=== PATIENT | female | born 1990 | race Caucasian/White ===

== ENCOUNTER 2020-06-09 06:52 | Observation (INO) | payer OTHER, SELFPAY ==
--- NOTE | 2020-06-09 09:25 | OBADM ---
This patient, Rhonda Alaom, admitted to the OB room Labor/Delivery/Recovery 120 for observation. Patient/family oriented to hospital policies and general routines including ID bracelet, bed and alarms, visiting hours, pain management, procedures, bathroom and other care routines, personal items, smoking policy, room service/diet, and visiting hours. Patient/Family are encouraged to report perceived risks to care and to ask questions if they do not understand what they are told or what they should do.
--- NOTE | 2020-06-12 08:50 | PM.OBTRLD ---
OB - Triage/Final Diagnosis Visit Information Reason for evaluation: other (gest htn) Comments/Additional reasons for admission: I have assessed the risk for this patient, Rhonda Alamo, and determined that she would benefit from observation care.
== END 2020-06-09 09:30 | disposition home or self-care (01) ==
PROVIDERS: Admitting Provider Obstetrics & Gynecology; PCP Family Medicine; Visit Provider Obstetrics & Gynecology
DX: O13.3 Gestational [pregnancy-induced] hypertension without significant proteinuria, third trimester (principal); Z3A.37 37 weeks gestation of pregnancy
CPT/HCPCS: G0378; G0379

== ENCOUNTER 2020-06-11 14:56 | Outpatient (CLI) | payer OTHER, SELFPAY ==
[2020-06-11 15:15] LABS: Hemoglobin 10.1 g/dL (12.0-15.0); Mean Corpuscular HGB Conc 32.6 g/dl (32-36); Mean Corpuscular Hemoglobin 24.8 pg (26-34); Mean Platelet Volume 10.6 fl (7.4-10.4); Platelet Count Result 205 k/mm3 (150-375); Red Blood Count 4.08 M/mm3 (4.2-5.4); Red Cell Distribution Width 13.6 % (11.5-14.5); White Blood Count 8.8 K/mm3 (4.5-10.0)
[2020-06-12 06:46] LABS: Rapid Plasma Reagin Non-Reactive (NonReactive)
== END 2020-06-11 14:57 | disposition home or self-care (01) ==
LOC: ANHLAB 14:58
PROVIDERS: PCP Family Medicine; Visit Provider Obstetrics & Gynecology
DX: Z34.93 Encounter for supervision of normal pregnancy, unspecified, third trimester (principal); Z3A.00 Weeks of gestation of pregnancy not specified
CPT/HCPCS: 36415; 85027; 86592; 86850; 86900; 86901

== ENCOUNTER 2020-06-13 05:42 | Inpatient (IN) | payer OTHER, SELFPAY ==
--- NOTE | 2020-06-11 15:31 | PM.IMHP ---
H&P: HPI History of Present Illness Date/Time: 06/11/20 15:31 29-year-old 011 whose last menstrual period was 09/21/2019, EDC is 06/27/2020, confirmed by 9 week ultrasound presents at 38 weeks gestation for repeat section. She has elevated blood pressures. She also desires permanent sterilization. Alternatives reviewed and permanent. Chief Complaint: -induced hypertension and term With previous section desiring permanent sterilization Review of Systems Review of Systems: All systems reviewed & are unremarkable except as noted in HPI and below PMFSH Family History Family History Mother Diabetes mellitus Atrial fibrillation Social History Social History Substance use: never Gender identity (if verbalized by the patient): Female Spiritual care concerns: No Meds Home Medications and Allergies Home Medications Medication Instructions Recorded Confirmed Type PNV cmb#95-ferrous fumarate-FA 1 tablet PO DAILY 06/02/20 06/02/20 History [] Allergies Allergy/AdvReac Type Severity Reaction Status Date / Time Sulfa (Sulfonamide Allergy Intermediate rash Verified 09/20/15 10:32 Antibiotics) Penicillins Allergy Mild Verified 07/04/11 21:00 sulfamethoxazole Allergy Unknown Verified 09/20/15 10:32 trimethoprim Allergy Unknown Verified 09/20/15 10:32 Exam Const: General: no acute distress Eyes: General: appearance normal, both eyes and all related structures Neck: Neck: supple and no JVD Thyroid: thyroid normal Resp: Effort & Inspection: normal respiratory effort Auscultation: clear to auscultation bilaterally Cardio: Rate: regular rate Rhythm: regular rhythm GI: Inspection: non-distended GI Palp: Yes Soft to palpation, No Tenderness to palpation present (GI) and No Guarding due to palpation present (GI) Auscultation: normal bowel sounds : External Female Exam: normal external appearance Speculum Exam - Vagina: normal vaginal discharge Bimanual exam- vagina & uterus: normal palpation and uterine size normal (gravid uterus) Skin: General skin exam: no rashes or lesions noted Extrem: General: normal to inspection and no edema Psych: Mental Status: mental status grossly normal Affect: normal affect Assessment and Plan Additional Plan Impression: 38 week with induced hypertension and desires permanent sterilization with previous section Plan: Repeat low-transverse section and bilateral tubal ligation
[2020-06-13] VITALS (32 sets, daily range): BP systolic 96–121; BP diastolic 64–86; PULSE 60–94; RESP 14–20; TEMP 36.2–36.8; O2SAT 98–100; BMI 44.3
[2020-06-13] MEDS: LACTATED RINGERS 1,000 ML 125 ML IV CONT (06:17)
--- NOTE | 2020-06-13 06:28 | LDADM ---
This patient, Rhonda Alamo, was admitted to Labor/Delivery/Recovery 120 on 06/13/20 at 05:42. Plans for labor, pain management and were discussed with patient. Patient/family oriented to hospital policies and general routines including ID bracelet, bed and alarms, visiting hours, pain management, procedures, bathroom and other care routines, personal items, smoking policy, room service/diet and guest tray routines, infant security routines, and visiting hours. Patient/Family are encouraged to report perceived risks to care and to ask questions if they do not understand what they are told or what they should do. See OBIX for further documentation.
--- NOTE | 2020-06-13 06:40 | WPDHPUPDATE1 ---
History and Physical Update Update Date/Time: 06/13/20 06:40 History and Physical has been reviewed, including an updated exam of the patient. There are NO changes in the patient's condition. Risks, benefits, and alternatives have been discussed and questions answered. Patient agrees to proceed with procedure.
--- NOTE | 2020-06-13 06:47 | WPDANESEPPF ---
Anes - Initial Pre Proc Eval Procedure: Operation Date: 06/13/20 07:30 Proposed Procedures p Repeat Section With Tubal - Julio Barrios MD Date/Time: 06/13/20 06:47 Surgeon: Julio Barrios MD Pre Op Diagnosis: Repeat Patient Data Age: 30 Gender: F Height: 1.64 m Weight: 119 kg Last Vital Signs Pulse 72 06/13/20 06:46 BP 119/86 06/13/20 06:46 Allergies Allergy/AdvReac Type Severity Reaction Status Date / Time Sulfa (Sulfonamide Allergy Intermediate rash Verified 09/20/15 10:32 Antibiotics) Penicillins Allergy Mild Verified 07/04/11 21:00 sulfamethoxazole Allergy Unknown Verified 09/20/15 10:32 trimethoprim Allergy Unknown Verified 09/20/15 10:32 Home Medications Medication Instructions Recorded Confirmed Type PNV cmb#95-ferrous fumarate-FA 1 tablet PO DAILY 06/02/20 06/13/20 History [] Laboratory Tests 06/13/20 06:24 HIV 1&2 Ab/P24 Ag 4thGn Pending Patient hx anesthesia problems: none Family hx anesthesia problems: none PMFSH Family History Family History Mother Diabetes mellitus Atrial fibrillation Social History Social History Smoking status: Never smoker Substance use: never Gender identity (if verbalized by the patient): Female Spiritual care concerns: No Anes - Eval Final PreProcedure Day of Procedure 06/13/20 06:47 Patient weight: obese Heart: regular rate and rhythm Lungs: clear to auscultation and normal air movement Airway: Mallampati scale Neurological: alert and oriented Last oral intake: >/= 8 hours ASA classification: II Emergent: no Anesthetic plan: proceed Anesthesia type and monitoring: regional spinal Informed Consent: The patient's anesthetic plan and its attendant risks and benefits were discussed with the patient/family/POA. Questions were solicited and answers provided to the satisfaction of the patient/family/POA.
[2020-06-13] MEDS: LACTATED RINGERS 1,000 ML 999 ML IV CONT (07:05)
--- NOTE | 2020-06-13 07:30 | PC.NURSE ---
PT introductions made and plan of care discussed per post op surgery, pain management, daily care activities and pending discharge to home. PT verbalized understanding of such care.
[2020-06-13 07:39] LABS: HIV 1/2 Ab P24 Ag Result Negative (Negative)
--- NOTE | 2020-06-13 08:01 | PM.PROC ---
Procedure Note - Detailed Date of procedure: 06/13/20 Pre-op diagnosis: Repeat Surgeon: Julio Barrios MD Postop diagnosis: Term /gestational hypertension/previous section/desires permanent sterilization Procedure: Repeat low-transverse section and bilateral tubal ligation via modified Allie method Q BL: 370cc Spinal anesthesia Complications: None Findings: Female 8 lb 10 oz with Apgars of 8 and 9 at 1 and 5 minutes respectively Description of procedure: The patient is prepped draped in normal sterile fashion placed in supine position. Under excellent spinal anesthetic the abdomen was entered through the previous Pfannenstiel incision progressive layers to fascia. Fascia was incised in upward fashion bilaterally. The underlying muscles sharply dissected the parietal peritoneum 0 by Luh clamp. This was carried superiorly inferiorly dome of bladder. Bladder blade was placed and a bladder flap formed. Laterally returned low-transverse incision made head delivered in the ISA position. Anterior posterior shoulder delivered spontaneously. Cord clamped and cut and passed off the table with excellent cry. Placenta delivered intact manually uterus delivered and wrapped in a moist towel. After assuring no membranes remained uterus the uterus was closed with continuous running 0 Vicryl from lateral edge to lateral edge followed by 2nd imbricating running locking 0 Vicryl from lateral edge to lateral edge. Hemostasis was assured ovaries and tubes appeared within normal limits right fallopian tube was grasped in a good knuckle of tube formed in the midportion. This was free tied with 0 chromic followed by piercing the peritoneum between. The distal and proximal end was free tied with 0 chromic in the portion between cut passed off the table and marked as portion of right fallopian tube. In like fashion left fallopian tube was grasped midportion. Good knuckle of tube formed and free tied with 0 chromic the peritoneum was pierced and the distal and proximal legs were free tied with Ellis chromic in portion between cut passed off the table and marked as portion of left fallopian tube. Hemostasis was assured on each fallopian tube incisions. The uterine incision inspected 1 last time noted be hemostatic. The uterus returned to the abdomen in the laps were accounted for. The fascia closed with continuous running 0 Vicryl from lateral edge to midline bilaterally. Irrigation subcutaneous layer the skin closed with 4 Monocryl glue. Q BL was 3 there were no immediate complications 360cc all sponge, needle, instrument counts was were correct. The patient went to recovery in satisfactory condition
[2020-06-13] MEDS: OXYTOCIN 30 UNITS/NS 500 ML 30 UNITS/500 ML BAG 125 UNITS IV CONT (08:48)
[2020-06-13] MEDS: MORPHINE SULFATE (*CRX) 2 MG/ML INJ IV PUSH ×2 (08:55→09:48)
--- NOTE | 2020-06-13 10:20 | OBPPTRN ---
Patient transferred to post room # 287 via stretcher. Support person present. Oriented to unit, room, information board, rooming in, admission packet and security measures. Patient verbalizes understanding.
--- NOTE | 2020-06-13 10:45 | PC.NURSE ---
PT received education teaching on and on herself. no learning barriers observed. discussion one to one with opportunity for questions from pt and spouse. both verbalized understanding of such teaching.
[2020-06-13] MEDS: KETOROLAC 30 MG/ML VIAL (*BKC) IV PUSH ×2 (11:47→17:51)
[2020-06-13] MEDS: SIMETHICONE 80 MG TAB.CHEW PO ×2 (11:48→17:51)
[2020-06-13] MEDS: DEXTROSE 5%/0.45% SOD CHL 1,000 ML 125 ML IV CONT (13:00)
[2020-06-13] MEDS: DOCUSATE SODIUM 100 MG CAPSULE PO (17:51)
[2020-06-14 00:15] VITALS: BP 104/64; PULSE 74; RESP 16; TEMP 36.7; O2SAT 98
[2020-06-14] MEDS: KETOROLAC 30 MG/ML VIAL (*BKC) IV PUSH (00:21)
[2020-06-14 04:30] VITALS: BP 113/73; PULSE 72; RESP 16; TEMP 36.7; O2SAT 98
--- NOTE | 2020-06-14 05:52 | PM.OBPNVD ---
OB - PN: Subj Subjective Date/time seen: 06/14/20 05:52 Patient comments: no complaints and pain well controlled baby status: doing well and nursing well OB - PN: Obj Data Labs CBC & Chem 7: 06/14/20 04:41 Labs: Laboratory Results - last 24 hr 06/13/20 06:24 HIV 1&2 Ab/P24 Ag 4thGn Negative OB - PN A/P Plan day: 1 Plan: routine care Time Spent With Patient Time: Total time spent is greater than 50% in coordination of care (as documented) at patient's floor/unit and/or counseling patient: Time with patient: less than 15 minutes Review of Systems Review of Systems: All systems reviewed & are unremarkable except as noted in HPI and below Exam Const: General: no acute distress Eyes: General: appearance normal, both eyes and all related structures Neck: Neck: supple and no JVD Thyroid: thyroid normal Resp: Effort & Inspection: normal respiratory effort Auscultation: clear to auscultation bilaterally Cardio: Rate: regular rate Rhythm: regular rhythm GI: Inspection: normal to inspection Percussion: Yes normal to percussion : General: Yes bladder normal to palpation External Female Exam: normal external appearance Speculum Exam - Vagina: normal vaginal discharge and No vaginal bleeding Speculum Exam - Cervix: nontender Bimanual exam- vagina & uterus: bladder normal to palpation and No Cervical tenderness present OB/external & speculum: No vaginal bleeding Skin: General skin exam: no rashes or lesions noted Extrem: General: normal to inspection and no edema Psych: Mental Status: mental status grossly normal Affect: normal affect
[2020-06-14 05:53] LABS: Basophils Percent Auto 0.3 % (0.2-1.2); Eosinophils Absolute Auto 0.1 K/mm3 (0-0.3); Eosinophils Percent Auto 1.3 % (0-4.4); Hematocrit 28.2 % (37.0-47.0); Hemoglobin 8.8 g/dL (12.0-15.0); Immature Granulocyte Absolute 0.04 K/mm3 (0.00-0.031); Immature Granulocyte Percent A 0.4 % (0-0.5); Lymphocytes Absolute Auto 2.03 K/mm3 (0.9-3.2); Lymphocytes Percent Auto 19.2 % (18.3-44.2); Mean Corpuscular HGB Conc 31.2 g/dl (32-36); Mean Corpuscular Volume 76.8 fl (80-100); Mean Platelet Volume 11.2 fl (7.4-10.4); Monocytes Absolute Auto 0.6 K/mm3 (0.1-0.6); Monocytes Percent Auto 5.8 % (2.6-8.5); Neutrophils Absolute Auto 7.7 K/mm3 (1.3-6.7); Platelet Count Result 169 k/mm3 (150-375); Red Blood Count 3.67 M/mm3 (4.2-5.4); Red Cell Distribution Width 13.7 % (11.5-14.5); White Blood Count 10.6 K/mm3 (4.5-10.0)
[2020-06-14 07:40] VITALS: BP 112/75; PULSE 73; RESP 20; TEMP 36.9; O2SAT 99
[2020-06-14] MEDS: POLYSACCHARIDE IRON COMPLEX 150 MG CAPSULE PO ×2 (07:52→16:24)
[2020-06-14] MEDS: DOCUSATE SODIUM 100 MG CAPSULE PO ×2 (07:52→16:24)
[2020-06-14] MEDS: IBUPROFEN 600 MG TABLET PO ×3 (07:53→23:20)
[2020-06-14] MEDS: SIMETHICONE 80 MG TAB.CHEW PO ×5 (08:01→23:20)
--- NOTE | 2020-06-14 09:23 | WPDANLDPN2 ---
Anes-Prog Note L&D Date/Time: 06/14/20 09:23 Comfortable throughout: section Neuraxial method: spinal Epidural/Spinal procedure site: clean & non-tender Neuro status: Neuro function grossly intact. Cardiovascular status: normal Respiratory status: normal Airway patency: baseline Mental status: baseline Post-Op hydration status: normal Vital Signs: Last Vital Signs Temp 36.9 C 06/14/20 07:40 Pulse 73 06/14/20 07:40 Resp 20 06/14/20 07:40 BP 112/75 06/14/20 07:40 Pulse Ox 99 06/14/20 07:40 Pain score (VAS): 2 I/O: Intake & Output 06/13/20 06/14/20 06/14/20 23:59 07:59 15:59 Intake Total 500 500 Output Total 250 2000 Balance 250 -1500 Post-procedural complaints: none Patient feedback: Patient satisfied with anesthetic care.
--- NOTE | 2020-06-14 09:23 | WPDANLDNPN2 ---
Anes-Prog Note L&D-Neuraxial Date/Time: 06/14/20 09:23 Neuraxial medications: intrathecal PF morphine Opiod-related complaints: none Patient feedback: Patient satisfied with post-operative pain management.
[2020-06-14 12:00] VITALS: BP 93/65; O2SAT 97
[2020-06-14] MEDS: HYDROcodone/acetaminophen (*CRX) 5-325 MG TABLET 1 TAB PO ×3 (12:35→20:40)
[2020-06-14 16:15] VITALS: BP 112/85; PULSE 83; RESP 18; O2SAT 97
[2020-06-14 19:00] VITALS: BP 121/84; PULSE 71; RESP 16; TEMP 36.8
[2020-06-14] MEDS: HYDROcodone/acetaminophen (*CRX) 10-325 MG TABLET 1 TAB PO (23:42)
--- NOTE | 2020-06-15 06:06 | PM.OBPNVD ---
OB - PN: Subj Subjective Date/time seen: 06/15/20 06:06 Patient comments: no complaints and pain well controlled baby status: doing well OB - PN: Obj Data Labs CBC & Chem 7: 06/14/20 04:41 Labs: Laboratory Results - last 24 hr 06/14/20 04:41 WBC 10.6 H RBC 3.67 L Hgb 8.8 L Hct 28.2 L MCV 76.8 L MCH 24.0 L MCHC 31.2 L RDW 13.7 Plt Count 169 MPV 11.2 H Immature Gran % (Auto) 0.4 Neut % (Auto) 73.0 Lymph % (Auto) 19.2 [place] % (Auto) 5.8 Eos % (Auto) 1.3 Baso % (Auto) 0.3 Lymph # (Auto) 2.03 [place] # (Auto) 0.6 Eos # (Auto) 0.1 Baso # (Auto) 0.0 Abs Immat Gran (auto) 0.04 H Absolute Neuts (auto) 7.7 H Absolute Nucleated RBC 0.0 Nucleated RBC % 0.0 OB - PN A/P Plan day: 2 Plan: routine care, discharge home and follow up 6 weeks (4 weeks) Time Spent With Patient Time: Total time spent is greater than 50% in coordination of care (as documented) at patient's floor/unit and/or counseling patient: Time with patient: less than 15 minutes Review of Systems Review of Systems: All systems reviewed & are unremarkable except as noted in HPI and below Exam Const: General: no acute distress Eyes: General: appearance normal, both eyes and all related structures Neck: Neck: supple and no JVD Thyroid: thyroid normal Resp: Effort & Inspection: normal respiratory effort Auscultation: clear to auscultation bilaterally Cardio: Rate: regular rate Rhythm: regular rhythm GI: Inspection: non-distended GI Palp: Yes Soft to palpation, No Tenderness to palpation present (GI) and No Guarding due to palpation present (GI) Auscultation: normal bowel sounds : General: Yes bladder normal to palpation External Female Exam: normal external appearance Speculum Exam - Vagina: normal vaginal discharge and No vaginal bleeding Speculum Exam - Cervix: nontender Bimanual exam- vagina & uterus: bladder normal to palpation and No Cervical tenderness present OB/external & speculum: No vaginal bleeding Skin: General skin exam: no rashes or lesions noted Extrem: General: normal to inspection and no edema Psych: Mental Status: mental status grossly normal Affect: normal affect
--- NOTE | 2020-06-15 06:07 | PM.DS ---
DS: Admitting Diagnosis Admitting Diagnosis Admitting Diagnosis: gest htn/38 weeks DS: Summary Hospital Course Hospital Course: Patient was admitted for repeat section. This was done secondary to elevated blood pressures. The procedure itself was unremarkable. Her blood pressures remained good throughout her stay. She was up, voiding without difficulty, ambulating, eating a regular diet, passing gas, and generally without complaints Time Spent with Patient Time attestation: Total time spent providing and/or coordinating discharge services: Exam Const: General: no acute distress Eyes: General: appearance normal, both eyes and all related structures Neck: Neck: supple and no JVD Thyroid: thyroid normal Resp: Effort & Inspection: normal respiratory effort Auscultation: clear to auscultation bilaterally Cardio: Rate: regular rate Rhythm: regular rhythm GI: Inspection: non-distended GI Palp: Yes Soft to palpation, No Tenderness to palpation present (GI) and No Guarding due to palpation present (GI) Auscultation: normal bowel sounds : General: Yes bladder normal to palpation External Female Exam: normal external appearance Speculum Exam - Vagina: normal vaginal discharge and No vaginal bleeding Speculum Exam - Cervix: nontender Bimanual exam- vagina & uterus: bladder normal to palpation and No Cervical tenderness present OB/external & speculum: No vaginal bleeding Skin: General skin exam: no rashes or lesions noted Extrem: General: normal to inspection and no edema Psych: Mental Status: mental status grossly normal Affect: normal affect DS: Data Data Completed and Pending Completed studies during hospitalization: Pending at discharge 06/13/20 07:45 Surgical [PTH] Routine Surgical [PTH] Routine Labs on day of discharge: Labs from last 24 hours 06/14/20 04:41 WBC 10.6 H RBC 3.67 L Hgb 8.8 L Hct 28.2 L MCV 76.8 L MCH 24.0 L MCHC 31.2 L RDW 13.7 Plt Count 169 MPV 11.2 H Immature Gran % (Auto) 0.4 Neut % (Auto) 73.0 Lymph % (Auto) 19.2 [place] % (Auto) 5.8 Eos % (Auto) 1.3 Baso % (Auto) 0.3 Lymph # (Auto) 2.03 [place] # (Auto) 0.6 Eos # (Auto) 0.1 Baso # (Auto) 0.0 Abs Immat Gran (auto) 0.04 H Absolute Neuts (auto) 7.7 H Absolute Nucleated RBC 0.0 Nucleated RBC % 0.0 Discharge Plan Discharge Attending physician on discharge: Julio Barrios Discharging Clinician: Julio Barrios Patient Disposition: Home, Self-Care Activity: may shower, no straining, may drive after 2 weeks and pelvic rest Diet: heart healthy Wound Care Instructions: follow printed instructions Patient Instructions: Antibiotic Form Stand Alone Forms: General Discharge Information Follow-up/Referrals: Julio Barrios MD [Physician] - Discharge Medications: New hydrocodone-acetaminophen 5-300 mg tablet 1 tablet PO Q6H PRN (Reason: pain) Qty: 30 RF: 0 Continued PNV cmb#95-ferrous fumarate-FA [] 28 mg iron- 800 mcg Tablet 1 tablet PO DAILY RF: 0 Date of admission: 06/13/20 05:42 Primary Care Provider: DayanSarah Admitting Provider: Julio Barrios Attending physician on admission: Julio Barrios Condition: Stable
[2020-06-15] MEDS: HYDROcodone/acetaminophen (*CRX) 5-325 MG TABLET 1 TAB PO ×4 (06:57→19:50)
[2020-06-15] MEDS: SIMETHICONE 80 MG TAB.CHEW PO ×4 (06:57→21:00)
[2020-06-15] MEDS: DOCUSATE SODIUM 100 MG CAPSULE PO ×2 (06:58→16:12)
[2020-06-15] MEDS: POLYSACCHARIDE IRON COMPLEX 150 MG CAPSULE PO ×2 (06:58→16:12)
[2020-06-15] MEDS: IBUPROFEN 600 MG TABLET PO ×3 (06:58→19:50)
--- NOTE | 2020-06-15 07:00 | PC.NURSE ---
PT introductions made and plan of care discussed per post op c section, pain management, daily care activities and bottle feeding. PT verbalized understanding of such care.
[2020-06-15 07:55] VITALS: BP 117/70; PULSE 82; RESP 18; TEMP 36.9; O2SAT 99
[2020-06-15 20:10] VITALS: BP 125/76; PULSE 72; RESP 16; TEMP 36.1; O2SAT 100
[2020-06-16] MEDS: IBUPROFEN 600 MG TABLET PO ×2 (01:57→07:47)
[2020-06-16] MEDS: SIMETHICONE 80 MG TAB.CHEW PO ×2 (04:54→07:05)
[2020-06-16] MEDS: DOCUSATE SODIUM 100 MG CAPSULE PO (07:05)
[2020-06-16] MEDS: POLYSACCHARIDE IRON COMPLEX 150 MG CAPSULE PO (07:05)
[2020-06-16] MEDS: HYDROcodone/acetaminophen (*CRX) 5-325 MG TABLET 1 TAB PO (07:09)
[2020-06-16 07:10] VITALS: BP 121/88; PULSE 68; RESP 16; TEMP 36.1
--- NOTE | 2020-06-16 07:20 | PM.OBDSVD ---
DS: Admitting Diagnosis Admitting Diagnosis Admitting Diagnosis: repeat section OB - DS: Summary OB Procedures : None OB Procedures Intrapartum: OB Procedures: : None Peripartum Data Delivery Method: Section Procedures: Procedures Operation Date: 06/13/20 07:30 Actual Procedures Side Surgeon p Repeat Section With Tubal Not Applicable Julio Barrios MD complications: none Status at Discharge Functional status at discharge: independent ambulation Overall status at discharge: patient is progressing back to baseline Time Spent with Patient Time attestation: Total time spent providing and/or coordinating discharge services: Time spent: Less than 30 minutes Exam Const: General: comfortable and no acute distress Resp: Effort & Inspection: normal respiratory effort Auscultation: clear to auscultation bilaterally Cardio: Rate: regular rate GI: Inspection: non-distended GI Palp: Yes Soft to palpation, No Firmness to palpation present (GI), Yes Tenderness to palpation present (GI) (mild tenderness over incision ) and No Guarding due to palpation present (GI) Auscultation: normal bowel sounds Psych: Appearance: grossly normal Mental Status: mental status grossly normal DS: Data Data Completed and Pending Completed studies during hospitalization: Pending at discharge 06/13/20 07:45 Surgical [PTH] Routine Surgical [PTH] Routine Discharge Plan Discharge Attending physician on discharge: Julio Barrios Discharging Clinician: Julio Barrios Patient Disposition: Home, Self-Care Activity: may shower, no straining, may drive after 2 weeks and pelvic rest Diet: heart healthy Wound Care Instructions: follow printed instructions Patient Instructions: Antibiotic Form Stand Alone Forms: General Discharge Information Follow-up/Referrals: Julio Barrios MD [Physician] - Discharge Medications: New hydrocodone-acetaminophen 5-300 mg tablet 1 tablet PO Q6H PRN (Reason: pain) Qty: 30 RF: 0 Continued PNV cmb#95-ferrous fumarate-FA [] 28 mg iron- 800 mcg Tablet 1 tablet PO DAILY RF: 0 Date of admission: 06/13/20 05:42 Primary Care Provider: Dayan,Sarah Admitting Provider: Julio Barrios Attending physician on admission: Julio Barrios Condition: Stable
[2020-06-18 11:01] VITALS: BP 120/88; PULSE 76; RESP 20; TEMP 36.6; O2SAT 99
== END 2020-06-16 12:40 | disposition home or self-care (01) | DRG 785 ==
LOC: ANHLDR 05:46 → ANHOB2 10:48
PROVIDERS: Admitting Provider Obstetrics & Gynecology; PCP Family Medicine; Visit Provider Obstetrics & Gynecology
PROC: 10D00Z1 Extraction of Products of Conception, Low, Open Approach (ICD-10-PCS; CPT 59514; principal; 2020-06-13 07:30)
DX: O13.4 Gestational [pregnancy-induced] hypertension without significant proteinuria, complicating childbirth (principal); Z37.0 Single live birth; Z3A.38 38 weeks gestation of pregnancy; O34.211 Maternal care for low transverse scar from previous cesarean delivery; O99.214 Obesity complicating childbirth; E66.9 Obesity, unspecified; Z30.2 Encounter for sterilization
CPT/HCPCS: 36415; 85025; 86703; 88302; A9270; G0432; J0131; J1885; J2270; J2274; J2370; J2590; J7120

== ENCOUNTER 2020-06-18 12:04 | Outpatient (CLI) | payer OTHER, SELFPAY ==
--- NOTE | 2020-06-18 | ECG_ITS ---
Measurements Intervals [place] Rate: 69 P: 39 NC: 143 QRS: 46 QRSD: 83 T: 40 QT: 379 QTc: 407 Interpretive Statements SINUS RHYTHM WITH SINUS ARRHYTHMIA INCOMPLETE RIGHT BUNDLE BRANCH BLOCK BORDERLINE ECG Electronically Signed On 06-18-2020 13:07:57 CDT by Bandar He D.O.
--- NOTE | ~2020-06-18 | XR_ITS ---
EXAMINATION: XR chest 2V 06/18/2020 12:29 INDICATION: Chest pressure PROCEDURE: 2 view chest COMPARISON: No prior studies for comparison. FINDINGS: The lungs are clear. The cardiomediastinal silhouette is within normal limits. There are no pleural effusions. There is no pneumothorax suspected. IMPRESSION: 1: NO ACUTE CARDIOPULMONARY DISEASE. Reviewed, dictated and finalized at location A.
== END 2020-06-18 12:05 | disposition home or self-care (01) ==
PROVIDERS: PCP Family Medicine; Visit Provider Obstetrics & Gynecology
DX: R07.89 Other chest pain (principal); I45.10 Unspecified right bundle-branch block
CPT/HCPCS: 71046; 93005

== ENCOUNTER 2022-09-19 01:28 | Day surgery (SDC) | payer OTHER, SELFPAY ==
--- NOTE | 2022-09-16 07:36 | P.HP_ITS ---
H&P: HPI History of Present Illness Date/Time: 09/16/22 07:36 Chief Complaint: Pelvic pain/enlarged uterus sludge right ovarian cyst Narrative: 32-year-old female with known enlarged uterus due to fibroids and right ovarian cyst. She is admitted for robotic hysterectomy bilateral salpingectomy possible right cystectomy versus right salpingo-oophorectomy. Risks and benefits reviewed including exclusive of , aspiration pneumonia, bleeding, transfusion, perforation injury to bowel, bladder, ureters, or other internal organs with need for laparotomy. She received the [employer] handout entitled hysterectomy as well as the de Dylan handout. She had all questions answered and asked to proceed PMF Family History Family History Mother Diabetes mellitus Atrial fibrillation Social History Social History Smoking status: Never smoker Substance use: never Gender identity (if verbalized by the patient): Female Spiritual care concerns: No Meds Home Medications and Allergies Home Medications Medication Instructions Recorded Confirmed Type vit no.95-ferrous 1 tablet PO DAILY 06/02/20 06/13/20 History fumarate 28 mg-folic acid 800 mcg tablet () hydrocodone 5 mg-acetaminophen 300 1 tablet PO Q6H PRN pain #30 tabs 06/13/20 Rx mg tablet Allergies Allergy/AdvReac Type Severity Reaction Status Date / Time Sulfa (Sulfonamide Allergy Intermediate rash Verified 09/20/15 10:32 Antibiotics) Penicillins Allergy Mild Verified 07/04/11 21:00 sulfamethoxazole Allergy Unknown Verified 09/20/15 10:32 trimethoprim Allergy Unknown Verified 09/20/15 10:32 Exam Const: General: cooperative, healthy appearing and comfortable Nutritional Appearance: average body habitus Orientation/consciousness: oriented to person, oriented to place and oriented to time HENMT: Head: normal to inspection Resp: Effort & Inspection: normal respiratory effort Cardio: Rate: regular rate Rhythm: regular rhythm Heart sounds: S1 normal heart sound present and S2 normal heart sound present GI: Inspection: normal to inspection : External Female Exam: normal external appearance Speculum Exam - Vagina: normal appearance of the vagina Speculum Exam - Cervix: normal appearance of the cervix Bimanual exam- vagina & uterus: enlarged Bimanual Exam- Adnexa, other: tender on the right and Adnexal mass present on the right Assessment and Plan Assessment and plan (1) Enlarged uterus: Code(s): N85.2 - Hypertrophy of uterus Status: Acute (2) Right ovarian cyst: Code(s): N83.201 - Unspecified ovarian cyst, right side Status: Acute Plan Robotic total hysterectomy with right cystectomy and possible right salpingo- oophorectomy
[2022-09-16 15:46] VITALS: BMI 31.6
--- NOTE | 2022-09-16 15:54 | PC.NURSE ---
Report to the Outpatient Waiting Room, entrance under the green pavilion located off [facility], at time 9:30 on date 09/19/22. Planned Procedure Time: 11:30. Time changes happen often and if your time is changed the preop area will call you the afternoon before. - You and your visitor will be asked to self-screen and do not enter if you have any COVID symptoms. - A mask is optional within the hospital at this time. Patients may have clear liquids (water, carbonated beverages, clear teas, apple juice) until 3 hours prior to surgery with a maximum of 20 ounces. - No food from midnight until time of surgery Take the following medications with a SIP of water the morning of surgery: NONE DO NOT STOP ANY OF YOUR OTHER PRESCRIPTION MEDICATIONS PRIOR TO SURGERY EXCEPT THE FOLLOWING Medications to discontinue per physician: VITAMINS/SUPPLEMENTS Date to take last dose: 09/16/22 Please no make-up, nail luxembourgish, hairspray, perfume, deodorant, or body powder the day of surgery. No jewelry (including any body piercings) or valuables the day of surgery, leave them at home. Please take a shower or bath the night before, or the morning of, surgery with an antibacterial soap. Wear comfortable, loose fitting clothing. - Jewelry must be removed prior to entering the operating room. Rings and piercings that are not removed may be cut off. - The hospital will not accept responsibility for valuables. - Please leave all valuables, including medications, at home the day of surgery. If you are going home after surgery, a licensed p d driver must drive you home. - NO public transportation without another adult if you receive anesthesia. - We recommend that an adult stay with you for 24 hours following discharge. - We also recommend that you do not drive, make important decision, drink alcoholic beverages, or take any drugs that were not prescribed by your health care provider for at least 24 hours after your discharge time. Follow any additional instructions given to you from your surgeon. If you or anyone in your household have experienced Covid symptoms in the past week, please notify your surgeon or the nurse liaison at the phone number below for possible testing. Telephone instructions given to PT - KATHY LAGOS and asked if any additional questions and then verbalized understanding. Patient advised to call surgeon office or pre surgery nurse liaison [phone] if any additional questions.
[2022-09-19] VITALS (10 sets, daily range): BP systolic 101–114; BP diastolic 56–74; PULSE 50–85; RESP 11–18; TEMP 36.4–37.1; O2SAT 97–100
--- NOTE | 2022-09-19 06:23 | WPDHPUPDATE1 ---
History and Physical Update Update Date/Time: 09/19/22 06:23 History and Physical has been reviewed, including an updated exam of the patient. There are NO changes in the patient's condition. Risks, benefits, and alternatives have been discussed and questions answered. Patient agrees to proceed with procedure.
[2022-09-19] MEDS: ACETAMINOPHEN 500 MG TABLET 1000 MG PO (09:46)
--- NOTE | 2022-09-19 10:11 | WPDANESEPPF ---
Anes - Initial Pre Proc Eval Procedure: Operation Date: 09/19/22 11:30 Proposed Procedures p Robotic Assisted Total Vaginal Hysterectomy, Bilateral Salpingectomy, Possible Right Ovarian Cystectomy, Possible Right Salpingo-oophorectomy - Julio Drake MD Date/Time: 09/19/22 10:11 Surgeon: Julio Drake MD Pre Op Diagnosis: pelvic pain,enlarged uterus, fibroids Patient Data Age: 32 Gender: F Height: 1.65 m Weight: 86.2 kg Allergies Allergy/AdvReac Type Severity Reaction Status Date / Time Sulfa (Sulfonamide Allergy Intermediate rash Verified 09/19/22 09:45 Antibiotics) Penicillins Allergy Mild Unknown Verified 09/19/22 09:45 sulfamethoxazole Allergy Unknown Rash Verified 09/19/22 09:45 trimethoprim Allergy Unknown Rash Verified 09/19/22 09:45 Home Medications Medication Instructions Recorded Confirmed Type ashwagandha extract 120 mg capsule 120 mg PO DAILY 09/16/22 09/19/22 History biotin 800 mcg tablet 800 mcg PO DAILY 09/16/22 09/19/22 History multivitamin 1 tablet PO DAILY 09/16/22 09/19/22 History hydrocodone 5 mg-acetaminophen 325 1 tablet PO Q4H PRN pain #20 tabs 09/19/22 Rx mg tablet Patient hx anesthesia problems: none Family hx anesthesia problems: none Results Review: All pre-operative results and documents have been reviewed as part of the pre-operative evaluation. [facility] Past Medical History Medical History (Updated 09/19/22 @ 10:11 by Phil Mathias MD) Enlarged uterus Right ovarian cyst Family History Family History Mother Diabetes mellitus Atrial fibrillation Social History Social History Smoking status: Never smoker Alcohol intake: current Drinks per week: 3 Substance use: never Substance use type: does not use Living arrangements: with family Gender identity (if verbalized by the patient): Female Spiritual care concerns: No Anes - Eval Final PreProcedure Day of Procedure 09/19/22 10:11 Patient weight: obese Heart: regular rate and rhythm Lungs: clear to auscultation and normal air movement Airway: Mallampati scale Neurological: alert and oriented Last oral intake: >/= 8 hours ASA classification: II Emergent: no Anesthetic plan: proceed Anesthesia type and monitoring: general ETT Results Review: All pre-operative results and documents have been reviewed as part of the pre-operative evaluation. Informed Consent: The patient's anesthetic plan and its attendant risks and benefits were discussed with the patient/family/POA. Questions were solicited and answers provided to the satisfaction of the patient/family/POA.
[2022-09-19 10:15] LABS: Basophils Percent Auto 0.1 % (0.2-1.2); Eosinophils Absolute Auto 0.1 K/mm3 (0-0.3); Hematocrit 41.8 % (37.0-47.0); Hemoglobin 13.6 g/dL (12.0-15.0); Immature Granulocyte Absolute 0.02 K/mm3 (0.00-0.031); Immature Granulocyte Percent A 0.3 % (0-0.5); Lymphocytes Absolute Auto 2.31 K/mm3 (0.9-3.2); Lymphocytes Percent Auto 32.7 % (18.3-44.2); Mean Corpuscular HGB Conc 32.5 g/dl (32-36); Mean Corpuscular Hemoglobin 28.7 pg (26-34); Mean Corpuscular Volume 88.2 fl (80-100); Mean Platelet Volume 10.1 fl (7.4-10.4); Monocytes Absolute Auto 0.4 K/mm3 (0.1-0.6); Monocytes Percent Auto 5.9 % (2.6-8.5); Neutrophils Absolute Auto 4.2 K/mm3 (1.3-6.7); Platelet Count Result 236 k/mm3 (150-375); Red Blood Count 4.74 M/mm3 (4.2-5.4); Red Cell Distribution Width 13.2 % (11.5-14.5); White Blood Count 7.1 K/mm3 (4.5-10.0)
[2022-09-19] MEDS: KETOROLAC 15 MG/ML VIAL (*BKC) IV PUSH (10:17)
[2022-09-19] MEDS: LACTATED RINGERS 1,000 ML 30 ML IV CONT ×2 (10:17→12:48)
[2022-09-19] MEDS: ceFAZolin 2 GM/D5W 50 ML 2 GM/50 ML BAG IVPB (11:26)
--- NOTE | 2022-09-19 12:31 | P.OP_ITS ---
Procedure Note - Detailed Date of Procedure 09/19/22 Pre-op Diagnosis pelvic pain,enlarged uterus, fibroids Post-op Diagnosis Same Procedure Performed Robotic total vaginal hysterectomy right salpingo-oophorectomy and left salpingectomy Surgeon Julio Drake MD Anesthesia General Indications since 32-year-old female with symptomatic fibroids and right ovarian cyst severe right-sided pelvic pain Findings enlarged uterus. Moderate-sized right ovarian cyst with marked amount vascularity. Description of Procedure Patient was prepped draped in the normal sterile fashion placed in the dorsal lithotomy position. Under excellent general trach anesthesia weighted speculum placed in posterior fornix vagina. Anterior lip of the cervix grasped with single-tooth tenaculum. Uterus sounded to 8cm. Serial dilatation with fragmented dilators performed followed by passes the 6. ALESSANDRO and the 3. Cold cup. Next the 16 Belgian catheter was placed in the bladder and drained of clear urine. The weighted speculum and single-tooth removed and the gloves were changed. A supraumbilical incision made the Veress needle passed in the abdomen. Abdomen filled with CO2 gas 15 was mercury. The 8mm trocar advanced in the abdomen. Downside visualized no injury seen. Patient placed in 20? Trendelenburg and right left lateral quadrant incisions made. 8Mm trocar advanced under direct visualization assuring no injury. Right upper quadrant incision trocar advanced under visualization assuring. The robot was docked. Attention was turned to the psychosocial rehabilitation counselor. The left round ligament grasped, burned, cut. Anteriorly a bladder flap was formed by sharply dissecting the peritoneum and reflecting the bladder caudally from the uterus and cervix to the opposite round ligament which was clamped, burned, cut. Next the left fallopian tube was skeletonized clamping burning and cutting and leaving it attached to its uterine origin maintaining the left ovary. The infundibulopelvic structure on the right was skeletonized remove the right ovary and tube clamped, burned, cut and brought to the level of previously cut round ligament. Next the cardinal broad ligaments on the left were serially skeletonized clamping burning cutting and Breeze down the lateral edge of the uterus and cervix until the uterine vessels could be seen on left these were clamped, burned, cut. In like fashion the cardinal broad ligaments were serially skeletonized on the right clamping burning cutting and hugging the cervix uterus until the uterine vessels could be seen on the right these were then clamped, burned, cut. Good blanching the uterus was seen in a colpotomy incision was made. Cervix uterus tube on the left and right ovary and tube on the right were removed through the vagina. Hemostasis was assured and the vagina closed with continuous running 0V lock from lateral edge to lateral edge back to the midline. Irrigation undertaken until clear blood loss estimated 25cc. The robot was undocked. The gas removed from the abdomen. The trocars removed from the abdomen. And the incisions closed with 4 Monocryl and glue. Patient was awakened went to recovery in satisfactory condition. All sponge, needle, instrument counts were correct. There were no immediate complications Estimated Blood Loss 25 Drains No Packing No Pathology Yes Complications No immediate complications Condition Stable Disposition PACU
[2022-09-19] MEDS: fentaNYL CITRATE INJ (*CRX) 100 MCG/2 ML VIAL 25 MCG IV PUSH ×2 (13:49→13:58)
[2022-09-19] MEDS: DEXTROSE 5%/LACTATED RINGERS 1,000 ML 125 ML IV CONT (14:30)
--- NOTE | 2022-09-19 15:28 | PM.DS ---
DS: Admitting Diagnosis Discharge Date 09/20/22 Admitting Diagnosis symptomatic uterine fibroids /pelvic pain/ right ovarian cyst DS: Discharge Diagnosis Discharge Diagnosis (1) Right ovarian cyst: Code(s): N83.201 - Unspecified ovarian cyst, right side Status: Acute (2) Enlarged uterus: Code(s): N85.2 - Hypertrophy of uterus Status: Acute DS: Summary Hospital Course Reason for hospitalization: patient was admitted on 09/19/2022 for robotic total hysterectomy and right salpingo-oophorectomy with left salpingectomy Hospital Course: she underwent the above named procedure on 09/19/2022. Her hospital course was unremarkable. For 24hour stay she remained afebrile. She was up, voiding without difficulty, eating regular diet, ambulating, generally without complaints. Time Spent with Patient Time attestation: Total time spent providing and/or coordinating discharge services: Exam Const: General: cooperative, healthy appearing and comfortable Nutritional Appearance: average body habitus Orientation/consciousness: oriented to person, oriented to place and oriented to time HENMT: Head: normal to inspection Resp: Effort & Inspection: normal respiratory effort Cardio: Rate: regular rate Rhythm: regular rhythm Heart sounds: S1 normal heart sound present and S2 normal heart sound present GI: Inspection: normal to inspection and incision ( Wounds are clean dry and intact) Auscultation: normal bowel sounds DS: Data Data Completed and Pending Pending studies at discharge: Pending at discharge 09/19/22 12:05 Surgical [PTH] Routine Labs on day of discharge: Labs from last 24 hours 09/19/22 10:10 WBC 7.1 RBC 4.74 Hgb 13.6 D Hct 41.8 MCV 88.2 MCH 28.7 MCHC 32.5 RDW 13.2 Plt Count 236 MPV 10.1 Immature Gran % (Auto) 0.3 Neut % (Auto) 59.0 Lymph % (Auto) 32.7 [place] % (Auto) 5.9 Eos % (Auto) 2.0 Baso % (Auto) 0.1 L Lymph # (Auto) 2.31 [place] # (Auto) 0.4 Eos # (Auto) 0.1 Baso # (Auto) 0.0 Abs Immat Gran (auto) 0.02 Absolute Neuts (auto) 4.2 Absolute Nucleated RBC 0.0 Nucleated RBC % 0.0 Blood Type B Positive Antibody Screen Negative Discharge Plan Discharge Patient Disposition: Home, Self-Care Discharge Instructions: Nothing in the vagina for 6 weeks. Call or return if temperature above 100.4? F, increased abdominal pain, increased vaginal bleeding or any new problems. Patient Instructions: Laparoscopic Hysterectomy (DC) Stand Alone Forms: General Discharge Instructions Follow-up/Referrals: Julio Watts MD [Physician] - 2 Weeks Discharge Medications: New hydrocodone-acetaminophen 5-325 mg tablet 1 tablet PO Q4H PRN (Reason: pain) Qty: 20 0RF Continued multivitamin Tablet 1 tablet PO DAILY biotin 800 mcg Tablet 800 mcg PO DAILY ashwagandha extract 120 mg Capsule 120 mg PO DAILY
[2022-09-19] MEDS: HYDROcodone/acetaminophen (*CRX) 5-325 MG TABLET 1 TAB PO ×2 (16:15→19:59)
[2022-09-19] MEDS: KETOROLAC 30 MG/ML VIAL (*BKC) IV PUSH (16:15)
[2022-09-19] MEDS: DOCUSATE SODIUM 100 MG CAPSULE PO (16:16)
[2022-09-20] MEDS: HYDROcodone/acetaminophen (*CRX) 5-325 MG TABLET 1 TAB PO ×2 (00:30→09:31)
[2022-09-20 05:05] LABS: Basophils Percent Auto 0.2 % (0.2-1.2); Eosinophils Absolute Auto 0.1 K/mm3 (0-0.3); Eosinophils Percent Auto 0.7 % (0-4.4); Hematocrit 34.9 % (37.0-47.0); Hemoglobin 11.3 g/dL (12.0-15.0); Immature Granulocyte Absolute 0.05 K/mm3 (0.00-0.031); Immature Granulocyte Percent A 0.5 % (0-0.5); Lymphocytes Percent Auto 11.3 % (18.3-44.2); Mean Corpuscular HGB Conc 32.4 g/dl (32-36); Mean Corpuscular Hemoglobin 28.3 pg (26-34); Mean Corpuscular Volume 87.3 fl (80-100); Mean Platelet Volume 10.7 fl (7.4-10.4); Monocytes Absolute Auto 0.6 K/mm3 (0.1-0.6); Monocytes Percent Auto 5.7 % (2.6-8.5); Neutrophils Absolute Auto 8.7 K/mm3 (1.3-6.7); Neutrophils Percent Auto 81.6 % (45.5-73.1); Platelet Count Result 187 k/mm3 (150-375); White Blood Count 10.6 K/mm3 (4.5-10.0)
[2022-09-20] MEDS: IBUPROFEN 600 MG TABLET PO (07:05)
[2022-09-20] MEDS: SIMETHICONE 80 MG TAB.CHEW PO (07:05)
[2022-09-20] MEDS: DOCUSATE SODIUM 100 MG CAPSULE PO (07:05)
[2022-09-20 07:15] VITALS: BP 102/69; PULSE 57; RESP 16; TEMP 36.3; O2SAT 100
--- NOTE | 2022-09-20 08:38 | PM.GYNPNOP ---
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 P: Home to f/u 2 weeks. (2) Enlarged uterus: Code(s): N85.2 - Hypertrophy of uterus Status: Acute Postoperative Procedures: Procedures Operation Date: 09/19/22 11:30 Actual Procedure Side Surgeon p Robotic Assisted Total Vaginal Hysterectomy, Bilateral Salpingectomy,Right Oophorectomy Bilateral Julio Drake MD Postoperative day: 1 Postoperative status: doing well Postoperative plan: routine post-op care Time Spent With Patient Time with patient: less than 15 minutes LOLLYPOP MACHINE OPERATOR- PN:Subj Post-Op Subjective Date/time seen: 09/20/22 08:38 Interval history: Pain OK. Tolerating diet. Voiding. Would like to go home. Exam Narrative: AVSS I/O OK ABD soft, nontender. Incisions c/d/i. EXT nontender LOLLYPOP MACHINE OPERATOR - PN: Obj Data Vital Signs Vital Signs: Vital Signs - 24 hr 09/19/22 10:18 09/19/22 12:48 09/19/22 13:05 Temperature 36.5 C 36.4 C L Pulse Rate 58 L 85 66 Respiratory Rate 16 11 L 14 Blood Pressure 114/74 104/64 108/60 Pulse Oximetry 100 100 100 Oxygen Delivery Room Air Simple Face Mask Simple Face Mask Oxygen Flow Rate 8 8 09/19/22 13:08 09/19/22 13:20 09/19/22 13:35 Temperature Pulse Rate 51 L 59 L Respiratory Rate 12 18 Blood Pressure 106/73 105/66 Pulse Oximetry 97 100 Oxygen Delivery Room Air Room Air Room Air Oxygen Flow Rate 09/19/22 13:50 09/19/22 14:05 09/19/22 14:20 Temperature 36.6 C Pulse Rate 50 L 52 L 50 L Respiratory Rate 14 16 16 Blood Pressure 109/60 104/56 L 101/66 Pulse Oximetry 97 100 100 Oxygen Delivery Room Air Room Air Oxygen Flow Rate 09/19/22 17:10 09/19/22 20:00 Temperature 37.1 C 36.5 C Pulse Rate 68 71 Respiratory Rate 16 16 Blood Pressure 108/59 L 109/62 Pulse Oximetry 98 100 Oxygen Delivery Oxygen Flow Rate Intake/Output Intake/Output: Intake & Output 09/17/22 09/18/22 09/19/22 09/20/22 23:59 23:59 23:59 23:59 Intake Total 350 Output Total 890 400 Balance -540 -400 Meds/Results Medications: Active Medications Generic Name Dose Route Start Last Admin Trade Name Freq PRN Reason Stop Dose Admin Hydrocodone Bitart/Acetaminophen 1 tab 09/19/22 14:10 Hydrocodone/Acetaminophen (*Crx) 10-325 Mg Tablet PO Q3H PRN Pain Rated 6 or Greater Hydrocodone Bitart/Acetaminophen 1 tab 09/19/22 14:10 09/20/22 00:30 Hydrocodone/Acetaminophen (*Crx) 5-325 Mg Tablet PO 1 tab Q3H PRN Administration Pain Rated 5 or Less Docusate Sodium 100 mg 09/19/22 17:00 09/20/22 07:05 Docusate Sodium 100 Mg Capsule PO 100 mg BID TERI Administration Enoxaparin Sodium 40 mg 09/20/22 09:00 Enoxaparin 40 Mg/0.4 Ml Syringe SUB-Q DAILY TERI Dextrose/Lactated Ringer's 1,000 mls @ 125 mls/hr 09/19/22 14:10 09/19/22 14:30 Dextrose 5%/Lactated Ringers IV CONT 125 mls/hr .Q8H TERI Administration Ibuprofen 600 mg 09/19/22 14:10 09/20/22 07:05 Ibuprofen 600 Mg Tablet PO 600 mg Q6H PRN Administration Cramping Ketorolac Tromethamine 30 mg 09/19/22 14:10 09/19/22 16:15 Ketorolac 30 Mg/Ml Vial (*Bkc) IV PUSH 09/24/22 14:09 30 mg Q6H PRN Administration Pain Rated 4-6 Naloxone HCl 0.1 mg 09/19/22 14:10 Naloxone Hcl 0.4 Mg/Ml Vial IV PUSH Q2M PRN Respiratory rate less than 10 Ondansetron HCl 4 mg 09/19/22 14:10 Ondansetron Inj 4 Mg/2 Ml Vial IV PUSH Q6H PRN Nausea And Vomiting Simethicone 80 mg 09/19/22 14:10 09/20/22 07:05 Simethicone 80 Mg Tab.Chew PO 80 mg Q2H PRN Administration Gas Labs 09/20/22 04:17 Labs: Laboratory Results - last 24 hr 09/19/22 09/20/22 10:10 04:17 WBC 7.1 10.6 H RBC 4.74 4.00 L Hgb 13.6 D 11.3 L Hct 41.8 34.9 L MCV 88.2 87.3
[2022-09-20] MEDS: ENOXAPARIN 40 MG/0.4 ML SYRINGE SUB-Q (09:32)
--- NOTE | 2022-09-20 09:58 | WPDANESPN ---
Anes - Prog Note Post-Op Date/Time: 09/20/22 09:58 Cardiovascular status: normal Respiratory status: normal Airway patency: baseline Mental status: baseline Post-Op hydration status: normal Vital Signs: Last Vital Signs Temp 97.4 F L 09/20/22 07:15 Pulse 57 L 09/20/22 07:15 Resp 16 09/20/22 07:15 BP 102/69 09/20/22 07:15 Pulse Ox 100 09/20/22 07:15 O2 Del Method Room Air 09/19/22 14:05 O2 Flow Rate 8 09/19/22 13:05 Pain Score (VAS): 3 I/O: Intake & Output 09/19/22 09/20/22 09/20/22 23:59 07:59 15:59 Output Total 850 400 Balance -850 -400 Laboratory Tests 09/20/22 04:17 09/19/22 09/20/22 10:10 04:17 WBC 7.1 10.6 H RBC 4.74 4.00 L Hgb 13.6 D 11.3 L Hct 41.8 34.9 L MCV 88.2 87.3 MCH 28.7 28.3 MCHC 32.5 32.4 RDW 13.2 13.0 Plt Count 236 187 MPV 10.1 10.7 H Immature Gran % (Auto) 0.3 0.5 Neut % (Auto) 59.0 81.6 H Lymph % (Auto) 32.7 11.3 L [place] % (Auto) 5.9 5.7 Eos % (Auto) 2.0 0.7 Baso % (Auto) 0.1 L 0.2 Lymph # (Auto) 2.31 1.20 [place] # (Auto) 0.4 0.6 Eos # (Auto) 0.1 0.1 Baso # (Auto) 0.0 0.0 Abs Immat Gran (auto) 0.02 0.05 H Absolute Neuts (auto) 4.2 8.7 H Absolute Nucleated RBC 0.0 0.0 Nucleated RBC % 0.0 0.0 Blood Type B Positive Antibody Screen Negative Post-procedural complaints: none Patient Feedback: Patient satisfied with anesthetic care.
== END 2022-09-20 11:06 | disposition home or self-care (01) ==
LOC: ANHSURGERY 09:33 → ANHOB2 14:12
PROVIDERS: PCP Family Medicine; Visit Provider Obstetrics & Gynecology
PROC: (CPT 58552; principal; 2022-09-19 11:30)
DX: N83.201 Unspecified ovarian cyst, right side (principal); R10.2 Pelvic and perineal pain; N85.2 Hypertrophy of uterus; E66.9 Obesity, unspecified; Z68.31 Body mass index [BMI] 31.0-31.9, adult
CPT/HCPCS: 58552; S2900; 36415; 85025; 86850; 86900; 86901; 88307; 99199; A9270; J0690; J1100; J1170; J1650; J1885; J2250; J2405; J2704; J3010; J7030; J7120; J7121